=== PATIENT | male | born 1985 | race Caucasian/White ===

== ENCOUNTER 2016-12-20 21:50 | Emergency (ER) | payer BC ==
[2016-12-20] MEDS ORDERED: Ibuprofen 800 MG Tab PO ONE (22:18)
--- NOTE | 2016-12-20 22:27 | EDM.PDOC ---
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 He is unable to range of motion DIP and distal half of his fifth digit is very sore since. Injury was just prior to arrival. No other complaints. No hand or wrist pain. Review of systems: As per history of present illness and below otherwise all systems reviewed and negative. Past medical history: As per history of present illness and as reviewed below otherwise noncontributory. Surgical history: As per history of present illness and as reviewed below otherwise noncontributory. Social history: No reported history of drug or alcohol abuse. Family history: As per history of present illness and as reviewed below otherwise noncontributory. Physical exam: Soft tissue swelling and tenderness at DIP left fifth digit patient unable to flex that joint secondary to pain. MVI distally HEENT: Normocephalic, atraumatic, pupils normal and symmetrical, supple neck, no meningismus, normal color Lungs: Normal and symmetrical chest wall excursion bilateral with no tachypnea or increased work of breathing, grossly normal chest exam Heart: No tachycardia in triage Abdomen: Normal-appearing, nondistended, no visible mass or asymmetry Pelvis: Normal-appearing Genitourinary: Deferred Rectal exam: Deferred Extremities: Atraumatic, normal use and range of motion, no visible evidence of gross neurovascular compromise Neuro: Awake, alert, oriented. Normal and appropriate mental status. Cranial nerves grossly unremarkable. Motor function normal. Nonfocal neurologic exam. Diagnostics: [X-ray left fifth digit with dorsal dislocation of DIP with no fracture. Interpreted by me Therapeutics: [Procedure: Reduction of dorsal dislocation of left fifth digit DIP by GILMA Bright Patient sitting. Anti-inflammatory and analgesic administered with good effect. Axial traction administered with mormon of normal anatomical position. After procedure patient still unable to flex the DIP at all consistent with flexor tendon rupture he is neurovascularly intact. No complications and he tolerated the procedure well] Impression: [] Plan: [Findings consistent with dorsal dislocation of left fifth digit DIP. Diagnosed by x-ray and reduced by me. Clinical findings on reevaluation consistent with avulsion of flexor tendon insertion of the distal phalange. Patient aware critical importance of close follow-up with hand surgery Dr. Vreas for reevaluation and definitive care without which she will have a permanent disability and inability to flex that joint.] Definitive disposition and diagnosis as appropriate pending reevaluation and review of above. left pinky finger Pain Score (Numeric/FACES): 5 - Related Data Allergies Allergy/AdvReac Type Severity Reaction Status Date / Time pollen extracts Allergy Rhinnorhea Verified 12/20/16 21:59 Home Meds: Home Meds Cetirizine HCl [Zyrtec] 10 mg PO DAILY 01/23/15 [History] Omeprazole Magnesium [Prilosec Otc] 20 mg PO DAILY 01/23/15 [History] Albuterol [Proair HFA] 1 puff INH ASDIRECTED 12/20/16 [History] Lisinopril 5 mg PO DAILY 12/20/16 [History] Past Medical History HEENT History: Reports: None Cardiovascular History: Reports: Hypertension Respiratory History: Reports: Asthma Gastrointestinal History: Reports: None Genitourinary History: Reports: None Musculoskeletal History: Reports: None Neurological History: Reports: None Psychiatric History: Reports: None Endocrine/Metabolic History: Reports: None Hematologic History: Reports: None Oncologic (Cancer) History: Reports: None Dermatologic History: Reports: None - Infectious Disease History Infectious Disease History: Reports: Chicken Pox - Past Surgical History Musculoskeletal Surgical History: Reports: Other (See Below) Other Musculoskeletal Surgeries/Procedures:: Elbow Surgery Social & Family History - Family History Family Medical History: Noncontributory - Tobacco Use Smoking Status *Q: Never Smoker Years of Tobacco use: 8 Second Hand Smoke Exposure: No - Caffeine Use Caffeine Use: Reports: Soda, Tea - Alcohol Use Days Per Week of Alcohol Use: 3 Number of Drinks Per Day: 5 Total Drinks Per Week: 15 - Recreational Drug Use Recreational Drug Use: No Review of Systems - Review of Systems Review Of Systems: See Below (History of present illness) ED EXAM, GENERAL - Physical Exam Exam: See Below (History of present illness) Course - Vital Signs Last Recorded V/S: Last Vital Signs Temp 36.4 C 12/20/16 21:57 Pulse 92 12/20/16 21:57 Resp 16 12/20/16 21:57 BP 176/101 H 12/20/16 21:57 Pulse Ox 98 12/20/16 21:57 - Orders/Labs/Meds Orders: Active Orders 24 hr Category Date Time Status Fingers Fifth Digit Lt F4 [CR] Stat Exams 12/20/16 22:20 Taken Meds: Medications Discontinued Medications Generic Name Dose Route Start Last Admin Trade Name Jayashree PRN Reason Stop Dose Admin Hydrocodone Bitart/Acetaminophen 1 tab 12/20/16 22:50 12/20/16 22:55 [place] 325-7.5 Mg PO 12/20/16 22:51 1 tab NOW STA Administration Ibuprofen 800 mg 12/20/16 22:18 12/20/16 22:24 Motrin PO 12/20/16 22:19 800 mg ONETIME ONE Administration Departure - Departure Time of Disposition: 23:03 Disposition: Home, Self-Care 01 Condition: good Clinical Impression: Dislocation of distal interphalangeal (DIP) joint of right little finger - Discharge Information Referrals: PCP,None [Primary Care Provider] - Forms: ED Department Discharge - My Orders Last 24 Hours: My Active Orders 12/20/16 22:20 Fingers Fifth Digit Lt F4 [CR] Stat - Assessment/Plan Last 24 Hours: My Active Orders 12/20/16 22:20 Fingers Fifth Digit Lt F4 [CR] Stat
[2016-12-20] MEDS ORDERED: Acetaminophen/HYDROcodone 325-7.5 MG Tab PO STA (22:50)
[2016-12-20 23:14] VITALS: BP 139/86
--- NOTE | 2016-12-21 12:53 | CR ---
EXAM DATE: 12/20/16 PATIENT'S AGE: 31 Patient: DUC CALIX Facility: [place], [place] Site . Site : 1985 Study: XRay Extremity 5th digit [id number]/12/2017 10:33:12 PM Ordering Physician: Colin Haji Final Report: INDICATION: Finger pain from injury TECHNIQUE: 5th Finger radiographs 3 views left COMPARISON: None FINDINGS: Bones: No acute fractures or aggressive bone lesions are identified. Joint spaces: Dorsal dislocation of the 5th DIP joint is noted. Soft tissues: Unremarkable. No radiopaque foreign bodies are noted. IMPRESSION: 1. Dorsal dislocation of the 5th DIP joint is noted. Dictated by Joe Ledezma MD @ 12/20/2016 11:06:14 PM Dictated by: Joe Ledezma MD @ 12/20/2016 23:06:20 (Electronic Signature) Report Signed by Proxy. DANIELLE
== END 2016-12-20 23:20 | disposition home or self-care (01) ==
LOC: MW.ED 21:50
DX: S63.297A Dislocation of distal interphalangeal joint of left little finger, initial encounter (principal); I10 Essential (primary) hypertension; J45.909 Unspecified asthma, uncomplicated; Z79.899 Other long term (current) drug therapy; Z98.890 Other specified postprocedural states; W21.07XA Struck by softball, initial encounter; Y93.64 Activity, baseball; Z00.00 Encounter for general adult medical examination without abnormal findings; E79.0 Hyperuricemia without signs of inflammatory arthritis and tophaceous disease; E78.00 Pure hypercholesterolemia, unspecified; R73.09 Other abnormal glucose
CPT/HCPCS: 26770; 36415; 73140; 80053; 80061; 83036; 84550; 99283; A9270

== ENCOUNTER 2016-12-29 07:21 | Day surgery (SDC) | payer BC ==
[~2016-12-29 07:21] MED LIST: Bupivacaine 0.25%/EPINEPHrine 1:200,000 10 ML SDV ONE; Lidocaine 2% 5 ML SDV ONE; Midazolam 1 MG/ML 2 ML SDV ONE; Ondansetron 4 MG/2 ML SDV ONE; Propofol 200 MG/20 ML SDV ONE; fentaNYL 250 MCG/5 ML SDV ONE
[2016-12-29] MEDS ORDERED: ceFAZolin 2 GM in Premix Bag 1 BAG IV ONE (08:00)
[2016-12-29] MEDS ORDERED: Bupivacaine 0.25%/EPINEPHrine 1:200,000 10 ML SDV INJECT ONE (08:00)
[2016-12-29] MEDS ORDERED: Acetaminophen/HYDROcodone 325-5 MG Tab PO PRN (08:00)
[2016-12-29] MEDS ORDERED: fentaNYL 100 MCG/2 ML SDV IVPUSH PRN (08:20)
[2016-12-29] MEDS ORDERED: Sodium Chloride 0.9% 20 ML ONE (08:22)
[2016-12-29] MEDS ORDERED: ceFAZolin 1 GM Vial ONE (08:22)
--- NOTE | 2016-12-29 08:39 | PCM.PREANE ---
Preanesthetic Assessment - Anesthesia/Transfusion/Family Hx Anesthesia History: Prior Anesthesia Without Reaction Family History of Anesthesia Reaction: No Transfusion History: No Prior Transfusion(s) - Review of Systems General: No Symptoms Pulmonary: No Symptoms Cardiovascular: No Symptoms Gastrointestinal: No symptoms Neurological: No Symptoms Other: Reports: None - Physical Assessment NPO Status Date: 12/28/16 NPO Status Time: 22:45 O2 Sat by Pulse Oximetry: 98 Respiratory Rate: 16 Vital Signs: Last Vital Signs Temp 36.2 C 12/29/16 07:54 Pulse 77 12/29/16 07:54 Resp 16 12/29/16 07:54 BP 139/60 12/29/16 07:54 Pulse Ox 98 12/29/16 07:54 Height: 1.68 m Weight: 107.4 kg ASA Class: 2 Mental Status: Alert & Oriented x3 Airway Class: Mallampati = 2 Dentition: Reports: Normal Dentition ROM/Head Extension: Full Lungs: Clear to auscultation, Normal respiratory effort Cardiovascular: Regular Rate, Regular Rhythm - Allergies Allergies/Adverse Reactions: Allergies Allergy/AdvReac Type Severity Reaction Status Date / Time pollen extracts Allergy Rhinnorhea Verified 12/20/16 21:59 - Anesthesia Plan Pre-Op Medication Ordered: None - Acknowledgements Anesthesia Type Planned: General Anesthesia Pt an Appropriate Candidate for the Planned Anesthesia: Yes Alternatives and Risks of Anesthesia Discussed w Pt/Guardian: Yes Pt/Guardian Understands and Agrees with Anesthesia Plan: Yes Additional Comments: has chronic asthma, exercised induced, uses inhalers daily, no recent exacerbations, has HTN and GERD, has hyperuricemia (mild) and is not on meds for it. NKDA PreAnesthesia Questionnaire HEENT History: Reports: Allergic Rhinitis Cardiovascular History: Reports: Hypertension Respiratory History: Reports: Asthma Gastrointestinal History: Reports: GERD Genitourinary History: Reports: None Musculoskeletal History: Reports: Fracture Other Musculoskeletal History: hx fx elbow Neurological History: Reports: None Psychiatric History: Reports: None Endocrine/Metabolic History: Reports: Obesity/BMI 30+ Hematologic History: Reports: None Oncologic (Cancer) History: Reports: None Dermatologic History: Reports: None - Infectious Disease History Infectious Disease History: Reports: Chicken Pox - Past Surgical History Head Surgeries/Procedures: Reports: None Musculoskeletal Surgical History: Reports: Other (See Below) Other Musculoskeletal Surgeries/Procedures:: hx of repair of fx elbow and removal of hardware to elbow - SUBSTANCE USE Smoking Status *Q: Never Smoker Tobacco Use Within Last Twelve Months: Snuff/Dip Second Hand Smoke Exposure: No Days Per Week of Alcohol Use: 3 Number of Drinks Per Day: 5 Total Drinks Per Week: 15 Recreational Drug Use History: No - HOME MEDS Home Medications: Home Meds Cetirizine HCl [Zyrtec] 10 mg PO DAILY 01/23/15 [History] Albuterol [Proair HFA] 1 - 2 puff INH ASDIRECTED PRN 12/20/16 [History] Lisinopril 5 mg PO DAILY 12/20/16 [History] Famotidine 20 mg PO BID 12/27/16 [History] - CURRENT (IN HOUSE) MEDS Current Meds: Current Medications Hydrocodone Bitart/Acetaminophen ([place] 325-5 Mg) 1 tab PO Q4H PRN PRN Reason: Pain Fentanyl (Sublimaze) 50 mcg IVPUSH Q5M PRN PRN Reason: Pain (severe 7-10) Stop: 12/30/16 08:21 Lactated Ringer's (Ringers, Lactated) 1,000 mls @ 125 mls/hr IV ASDIRECTED HESHAM Discontinued Medications Bupivacaine HCl/Epinephrine Bitart (Marcaine 0.25%/Epinephrine 1:200,000) 10 ml INJECT ONETIME ONE Stop: 12/29/16 08:01 Bupivacaine HCl/Epinephrine Bitart (Marcaine 0.25%/Epinephrine 1:200,000) Confirm Administered Dose 20 ml .ROUTE .STK-MED ONE Stop: 12/29/16 06:48 Cefazolin Sodium (Ancef) Confirm Administered Dose 2 gm .ROUTE .STK-MED ONE Stop: 12/29/16 08:23 Fentanyl (Sublimaze) Confirm Administered Dose 250 mcg .ROUTE .STK-MED ONE Stop: 12/29/16 07:22 Cefazolin Sodium/Dextrose 2 gm (/ Premix) 50 mls @ 100 mls/hr IV ONETIME ONE Stop: 12/29/16 08:29 Sodium Chloride (Normal Saline) Confirm Administered Dose 20 mls @ as directed .ROUTE .STK-MED ONE Stop: 12/29/16 08:23 Lidocaine (Xylocaine-Mpf 2%) Confirm Administered Dose 5 ml .ROUTE .STK-MED ONE Stop: 12/29/16 07:21 Midazolam HCl (Versed 1 Mg/Ml) Confirm Administered Dose 2 mg .ROUTE .STK-MED ONE Stop: 12/29/16 07:21 Ondansetron HCl (Zofran) Confirm Administered Dose 4 mg .ROUTE .STK-MED ONE Stop: 12/29/16 07:21 Propofol (Diprivan 20 Ml) Confirm Administered Dose 200 mg .ROUTE .STK-MED ONE Stop: 12/29/16 07:21
[2016-12-29] MEDS ORDERED: Lactated Ringers 1,000 ML IV SCH (09:00)
--- NOTE | 2016-12-29 11:26 | PCM.POSTAN ---
POST ANESTHESIA ASSESSMENT - MENTAL STATUS Mental Status: alert, oriented, somnolent - RESPIRATORY Respiratory Status: respiratory rate WNL, airway patent - CARDIOVASCULAR CV Status: pulse rate WNL, blood pressure stable - GASTROINTESTINAL GI Status: no symptoms - POST OP HYDRATION Hydration Status: adequate & stable
--- NOTE | 2016-12-29 11:26 | PCM48HPAN ---
Post Anesthesia Note - EVALUATION WITHIN 48HRS OF ANESTHETIC Vital Signs in Normal Range: Yes Patient Participated in Evaluation: Yes Respiratory Function Stable: Yes Airway Patent: Yes Cardiovascular Function Stable: Yes Hydration Status Stable: Yes Pain Control Satisfactory: Yes Nausea and Vomiting Control Satisfactory: Yes Mental Status Recovered: Yes
[2016-12-29 13:35] VITALS: BP 152/78
--- NOTE | 2016-12-30 16:50 | PCM.OPNOTE ---
- General Post-Op/Procedure Note Date of Surgery/Procedure: 12/29/16 Operative Procedure(s): repair of left small figner flexor digitorum profundus tendon not in zone 2 with micro mitek bone anchor. Pre Op Diagnosis: left small finger fds tendon avulsion from the distal phalanx. Post-Op Diagnosis: Same Anesthesia Technique: General ET tube, Local Primary Surgeon: Rivka Brooks Principal Clerk: Allison Amador Complications: None Condition: Good Free Text/Narrative:: [id number]
--- NOTE | 2016-12-31 02:20 | OR ---
SURGEON: VÍCTOR MOLINA MD DATE OF PROCEDURE: 12/29/2016 PREOPERATIVE DIAGNOSIS: Left small finger flexor digitorum profundus tendon laceration. POSTOPERATIVE DIAGNOSIS: Left small finger flexor digitorum profundus tendon laceration. PROCEDURE: Repair of left small finger flexor digitorum profundus tendon avulsion from the bone using a Micro QuickAnchor Plus 4-0 FiberWire suture. (not in zone 2) PHYSIOTHERAPY PRACTICE MANAGER: Allison Amador PA-C. INDICATIONS: Mr. Treviño is a 31-year-old gentleman who unfortunately had an avulsion of the flexor digitorum profundus off the left small finger distal phalanx. Risks and benefits of repair were discussed with him and he is in agreement to proceed. Risks were including, but not limited to, bleeding, infection, damage to underlying or overlying structures, possible need for future interventions and possible scarring. PROCEDURE IN DETAIL: After informed consent was obtained and placed on the chart, the patient was brought to the operating theater in the supine position. After adequate general anesthetic was obtained, the area was prepped and draped in normal fashion and a time-out was completed to confirm side and site. Attention was then paid to exploration of the flexor digitorum insertion site. A Hui incision was made over the middle and distal phalanx of the left small finger. Dissection was carried down to the tendon itself and that was appreciated to be held nearly in situ with minimal retraction. The distal phalanx was easily visualized with its small avulsion area, and the area was irrigated and a Micro QuickAnchor Plus 4-0 FiberWire suture was used intraoperatively, lot #[id number], expiration is 02/2017. Once adequately irrigated and this had been placed, the pre-drilling with power and placement of the anchor, the FiberWire suture was then attached and passed through the distal end of the tendon in a modified Ramirez fashion. Tenodermodesis was performed as well in order to strengthen the repair. This was tied together and the other 4-0 FiberWire was also sutured through in a modified Ramirez fashion for a four-strand repair. Once this was repaired and appreciated to be in appropriate flexion with gentle range of motion holding solid the area was irrigated and the skin was closed using 4-0 nylon stitches in a horizontal mattress fashion. Once adequately closed, the wound was dressed with Xeroform, fluffs, and a Kerlix gauze dressing and a volar splint. The patient tolerated this well. All counts of needles were correct at the end the case. The patient will see us in clinic in 10 to 14 days, sooner if any problems, questions, or concerns. HEGGTMARIBEL / OMAR /[id number] MTDMariia
== END 2016-12-29 11:45 | disposition home or self-care (01) ==
LOC: MW.SDS 07:21
PROVIDERS: ATTEND Plastic Surgery
PROC: 0LQ80ZZ Repair Left Hand Tendon, Open Approach (ICD-10-PCS; principal; 2016-12-29)
DX: S66.197A Other injury of flexor muscle, fascia and tendon of left little finger at wrist and hand level, initial encounter (principal); J45.20 Mild intermittent asthma, uncomplicated; I10 Essential (primary) hypertension; K21.9 Gastro-esophageal reflux disease without esophagitis; E78.00 Pure hypercholesterolemia, unspecified; E79.0 Hyperuricemia without signs of inflammatory arthritis and tophaceous disease; E66.9 Obesity, unspecified; Z79.899 Other long term (current) drug therapy; Z98.890 Other specified postprocedural states; Z91.048 Other nonmedicinal substance allergy status; Z68.37 Body mass index [BMI] 37.0-37.9, adult
CPT/HCPCS: 26350; A9270; C1713; J0690; J2250; J2405; J3010; J7120; 01810; J2704